=== PATIENT | male | born 1965 | race American Indian/Alaskan Native ===

== ENCOUNTER 2018-02-01 14:13 | Emergency (ER) | payer MEDICAID ==
[2018-02-01 14:13] VITALS: BMI 39.1
--- NOTE | 2018-02-01 14:40 | ED PDOC ---
Arrival/HPI - General Chief Complaint: Lower Extremity Problem/Injury Time Seen by Provider: 02/01/18 14:19 Historian: Patient - History of Present Illness Narrative History of Present Illness (Text): 02/01/18 14:37 52yo male with pmhx of hypertension, Diabetes, hyercholestrolemia who present with complaint of left thigh and knee pain s/p trauma 4days ago. States he fell on uneven side walk and landed on his left knee. States applying topical analgesia without relieve. Denies any other complaint. Past Medical History - Provider Review Nursing Documentation Reviewed: Yes - Infectious Disease Hx of Infectious Diseases: None - Tetanus Immunization Tetanus Immunization: Unknown - Cardiac Hx Cardiac Disorders: Yes Hx Hypertension: Yes - Pulmonary Hx Respiratory Disorders: No - Neurological Hx Neurological Disorder: No - HEENT Hx HEENT Disorder: No - Renal Hx Renal Disorder: No - Endocrine/Metabolic Hx Endocrine Disorders: Yes Hx Diabetes Mellitus Type 2: Yes - Hematological/Oncological Hx Blood Disorders: No - Integumentary Hx Dermatological Disorder: No - Musculoskeletal/Rheumatological Hx Musculoskeletal Disorders: No - Gastrointestinal Hx Gastrointestinal Disorders: No - Genitourinary/Gynecological Hx Genitourinary Disorders: No - Psychiatric Hx Psychophysiologic Disorder: No Hx Depression: No Hx Substance Use: No - Past Surgical History Past Surgical History: No Previous - Surgical History Hx Musculoskeletal Surgery: Yes (left ankle) Hx Tonsillectomy: Yes - Anesthesia Hx Anesthesia: Yes Hx Anesthesia Reactions: No Hx Malignant Hyperthermia: No - Suicidal Assessment Feels Threatened In Home Enviroment: No Family/Social History - Physician Review Nursing Documentation Reviewed: Yes Family/Social History: Unknown Family HX Smoking Status: Former Smoker Hx Alcohol Use: No Hx Substance Use: No Hx Substance Use Treatment: No Allergies/Home Meds Allergies/Adverse Reactions: Allergies No Known Allergies Allergy (Verified 09/28/15 21:06) Home Medications: Home Meds Medication Instructions Recorded Confirmed Metformin HCl [Metformin] 1,000 mg PO BID 04/17/13 09/28/15 Simvastatin [Zocor] 80 mg PO HS 03/30/15 09/28/15 Cetirizine HCl [Children's 5 mg PO DAILY 09/28/15 09/28/15 Cetirizine HCl] Losartan Potassium [Losartan 100 mg PO DAILY 09/28/15 09/28/15 Potassium] Review of Systems - Physician Review All systems were reviewed & negative as marked: Yes - Review of Systems Constitutional: Normal Eyes: Normal ENT: Normal Respiratory: Normal Cardiovascular: Normal Gastrointestinal: Normal Genitourinary Male: Normal Musculoskeletal: Arthralgias (LEft thigh/knee pain) Skin: Normal Neurological: Normal Endocrine: Normal Hemo/Lymphatic: Normal Psychiatric: Normal Physical Exam Vital Signs Reviewed: Yes Vital Signs Temp Pulse Resp BP Pulse Ox 02/01/18 14:22 98.2 F 88 19 169/81 H 97 Temperature: Afebrile Blood Pressure: Normal Pulse: Regular Respiratory Rate: Normal Appearance: Positive for: Well-Appearing, Non-Toxic, Comfortable Pain Distress: None Mental Status: Positive for: Alert and Oriented X 3 - Systems Exam Head: Present: Atraumatic, Normocephalic Pupils: Present: PERRL Extroacular Muscles: Present: EOMI Conjunctiva: Present: Normal Mouth: Present: Moist Mucous Membranes Neck: Present: Normal Range of Motion Respiratory/Chest: Present: Clear to Auscultation, Good Air Exchange. No: Respiratory Distress, Accessory Muscle Use Cardiovascular: Present: Regular Rate and Rhythm, Normal S1, S2. No: Murmurs Abdomen: No: Tenderness, Distention, Peritoneal Signs Back: Present: Normal Inspection Upper Extremity: Present: Normal Inspection. No: Cyanosis, Edema Lower Extremity: Present: NORMAL PULSES, Normal ROM, Tenderness (LEft knee and lateral thigh), Neurovascularly Intact. No: Edema, Swelling Neurological: Present: GCS=15, CN II-XII Intact, Speech Normal Skin: Present: Warm, Dry, Normal Color. No: Rashes Psychiatric: Present: Alert, Oriented x 3, Normal Insight, Normal Concentration Medical Decision Making ED Course and Treatment: 02/01/18 15:51 52yo male present with left knee/thigh pain x4days s/p trauma. Pt was ambulatory in ED. His pain improved in ED with medication. Left knee/femur xray - No acute fracture/dislocation. Result was DW the pt and he was DC home with Naprosyn. referred to his PMD/ortho - RAD Interpretation Radiology Orders: 02/01/18 14:31 KNEE LEFT 2 VIEWS (AP & LAT) [RAD] Stat 02/01/18 14:32 Femur Left [FEMUR MIN 2 VIEWS LT] [RAD] Stat - Medication Orders Current Medication Orders: Discontinued Medications Ketorolac Tromethamine (Toradol) 60 mg IM STAT STA Stop: 02/01/18 14:36 Last Admin: 02/01/18 14:49 Dose: 60 mg MAR Pain Assessment Document 02/01/18 14:49 HI (Rec: 02/01/18 14:50 [id number] Pain Reassessment Is this a pain reassessment? No Sleep Is patient sleeping during reassessment? No Presence of Pain Presence of Pain Yes Location Left, Right or Bilateral Left Pain Location Body Site Leg Description Description Constant Intensity of Pain at present 6 IM Administration Charges Document 02/01/18 14:49 HI (Rec: 02/01/18 14:50 [id number]) Injection Site MAR Injection Site Left Arm Charges for Administration # of IM Administrations 1 Disposition/Present on Arrival - Present on Arrival Any Indicators Present on Arrival: No History of DVT/PE: No History of Uncontrolled Diabetes: No Urinary Catheter: No History of Decub. Ulcer: No History Surgical Site Infection Following: None - Disposition Have Diagnosis and Disposition been Completed?: Yes Diagnosis: Knee pain, Thigh pain Disposition: HOME/ ROUTINE Disposition Time: 16:00 Patient Plan: Discharge Condition: STABLE Discharge Instructions (ExitCare): Knee Pain (DC) Additional Instructions: Follow up with your doctor/orthopedist Return to ED for new or worsening symptoms Prescriptions: Naproxen [Naprosyn] 500 mg PO BID #20 tablet Referrals: Edgar Glaser [Primary Care Provider] - Follow up with primary Vicente aKy MD [Staff Provider] - Follow up with primary Forms: [employer] (Wallisian)
--- NOTE | 2018-02-01 15:52 | RAD ---
Date of service: 02/01/2018 PROCEDURE: Left Femur Radiographs. HISTORY: thigh pain COMPARISON: None. TECHNIQUE: AP and Lateral Radiographs of the left femur. FINDINGS: FEMUR: Normal. No fracture. SOFT TISSUES: Soft tissue swelling. OTHER FINDINGS: None. IMPRESSION: No evidence of acute fracture or destructive bony lesion.
--- NOTE | 2018-02-01 15:54 | RAD ---
Date of service: 02/01/2018 PROCEDURE: Left Knee Radiographs. HISTORY: Pain. COMPARISON: None. FINDINGS: BONES: Normal. No fracture. JOINTS: Mild osteoarthritic changes are noted. JOINT EFFUSION: None. OTHER FINDINGS: None. IMPRESSION: No evidence of acute fracture or dislocation. Mild osteoarthritic changes.
[2018-02-01 17:14] VITALS: BP 154/87; PULSE 72; RESP 18; TEMP 98.3; O2SAT 98
== END 2018-02-01 16:26 | disposition home or self-care (01) ==
LOC: ED 14:13
DX: M79.652 Pain in left thigh (principal); M25.562 Pain in left knee; E11.9 Type 2 diabetes mellitus without complications; I10 Essential (primary) hypertension; E78.00 Pure hypercholesterolemia, unspecified; Z87.891 Personal history of nicotine dependence
CPT/HCPCS: 73552; 73560; 96372; 99284; J1885

== ENCOUNTER 2018-04-13 18:50 | Emergency (ER) | payer MEDICAID ==
[2018-04-13 19:49] VITALS: RESP 18; TEMP 98.5; BMI 29.0
--- NOTE | 2018-04-13 21:34 | ED PDOC ---
Arrival/HPI <Anthony Gorman - Last Filed: 04/13/18 22:37> - History of Present Illness Narrative History of Present Illness (Text): 04/13/18 19:40 Magen Ortez is a 53 year old male who presents to the Emergency department status post fall 1 week ago. Patient states he was going down the steps of his garage about 1 week ago when a step collapsed and he fell backwards hitting his head. Patient states since then he has been experiencing pain to the posterior aspect of his head with associated left-sided neck pain, low back pain, some left elbow discomfort, and left Great toe pain. Patient denies any loss of consciousness, nausea, vomiting, numbness, weakness, other trauma/injury, or any other complaints. Time/Duration: 1 week Symptom Onset: Gradual Symptom Course: Unchanged Activities at Onset: Light Context: Standing, Home <Maddi Cabrera PA-C - Last Filed: 04/14/18 01:05> - General Chief Complaint: Trauma Time Seen by Provider: 04/13/18 19:17 Past Medical History - Provider Review Nursing Documentation Reviewed: Yes - Infectious Disease Hx of Infectious Diseases: None - Tetanus Immunization Tetanus Immunization: Unknown - Cardiac Hx Cardiac Disorders: Yes Hx Hypertension: Yes - Pulmonary Hx Respiratory Disorders: No - Neurological Hx Neurological Disorder: No - HEENT Hx HEENT Disorder: No - Renal Hx Renal Disorder: No - Endocrine/Metabolic Hx Endocrine Disorders: Yes Hx Diabetes Mellitus Type 2: Yes - Hematological/Oncological Hx Blood Disorders: No - Integumentary Hx Dermatological Disorder: No - Musculoskeletal/Rheumatological Hx Musculoskeletal Disorders: No - Gastrointestinal Hx Gastrointestinal Disorders: No - Genitourinary/Gynecological Hx Genitourinary Disorders: No - Psychiatric Hx Psychophysiologic Disorder: No Hx Depression: No Hx Substance Use: No - Past Surgical History Past Surgical History: No Previous - Surgical History Hx Musculoskeletal Surgery: Yes (left ankle) Hx Tonsillectomy: Yes - Anesthesia Hx Anesthesia: Yes Hx Anesthesia Reactions: No Hx Malignant Hyperthermia: No - Suicidal Assessment Feels Threatened In Home Enviroment: No <Maddi Cabrera PA-C - Last Filed: 04/14/18 01:05> Family/Social History - Physician Review Nursing Documentation Reviewed: Yes Family/Social History: Unknown Family HX Smoking Status: Former Smoker Hx Alcohol Use: No Hx Substance Use: No Hx Substance Use Treatment: No <Maddi Cabrera PA-C - Last Filed: 04/14/18 01:05> Allergies/Home Meds <Anthony Gorman - Last Filed: 04/13/18 22:37> <Maddi Cabrera PA-C - Last Filed: 04/14/18 01:05> Allergies/Adverse Reactions: Allergies No Known Allergies Allergy (Verified 09/28/15 21:06) Home Medications: Home Meds Medication Instructions Recorded Confirmed Metformin HCl [Metformin] 1,000 mg PO BID 04/17/13 09/28/15 Simvastatin [Zocor] 80 mg PO HS 03/30/15 09/28/15 Cetirizine HCl [Children's 5 mg PO DAILY 09/28/15 09/28/15 Cetirizine HCl] Losartan Potassium 100 mg PO DAILY 09/28/15 09/28/15 Review of Systems - Physician Review All systems were reviewed & negative as marked: Yes - Review of Systems Cardiovascular: absent: Syncope Gastrointestinal: absent: Nausea, Vomiting Musculoskeletal: Back Pain, Neck Pain Neurological: Headache <Maddi Cabrera PA-C - Last Filed: 04/14/18 01:05> Physical Exam Vital Signs Temp Pulse Resp BP Pulse Ox 04/13/18 18:50 98.5 F 89 18 156/95 H 98 <Anthony Gorman - Last Filed: 04/13/18 22:37> Vital Signs Reviewed: Yes Vital Signs Temp Pulse Resp BP Pulse Ox 04/13/18 18:50 98.5 F 89 18 156/95 H 98 Temperature: Afebrile Blood Pressure: Normal Pulse: Regular Respiratory Rate: Normal Appearance: Positive for: Well-Appearing, Non-Toxic, Comfortable Pain Distress: None Mental Status: Positive for: Alert and Oriented X 3 - Systems Exam Head: Present: Atraumatic, Normocephalic Pupils: Present: PERRL Extroacular Muscles: Present: EOMI Conjunctiva: Present: Normal Mouth: Present: Moist Mucous Membranes Neck: Present: Normal Range of Motion Respiratory/Chest: Present: Clear to Auscultation, Good Air Exchange. No: Respiratory Distress, Accessory Muscle Use Cardiovascular: Present: Regular Rate and Rhythm, Normal S1, S2. No: Murmurs Abdomen: No: Tenderness, Distention, Peritoneal Signs Back: Present: Normal Inspection Upper Extremity: Present: Normal Inspection. No: Cyanosis, Edema Lower Extremity: Present: NORMAL PULSES, Normal ROM, Tenderness (Tenderness to left Great toe), Swelling (Swelling to left Great toe), Neurovascularly Intact, Capillary Refill < 2 s. No: Edema, Cyanosis, Erythema, Deformity, Temperature Abnormalties Neurological: Present: GCS=15, CN II-XII Intact, Speech Normal Skin: Present: Warm, Dry, Normal Color. No: Rashes Psychiatric: Present: Alert, Oriented x 3, Normal Insight, Normal Concentration <Maddi Cabrera PA-C - Last Filed: 04/14/18 01:05> Medical Decision Making - RAD Interpretation Radiology Orders: 04/13/18 19:41 HEAD W/O CONTRAST [CT] Stat CERVICAL SPINE AP & LATERAL [RAD] Stat FOOT LEFT 3 VIEWS ROUTINE [RAD] Stat LS SPINE WITH OBL > 18 YRS OLD [RAD] Stat - Medication Orders Current Medication Orders: Discontinued Medications Acetaminophen (Tylenol 325mg Tab) 975 mg PO STAT STA Stop: 04/13/18 19:46 Last Admin: 04/13/18 19:57 Dose: 975 mg MAR Pain/Vitals Document 04/13/18 19:57 EQ (Rec: 04/13/18 19:58 EQ [id number]) Pain Reassessment Is This A Pain ReAssessment? No Sleep Is patient sleeping during reassessment? No Presence of Pain Presence of Pain Yes <Anthony Gorman - Last Filed: 04/13/18 22:37> ED Course and Treatment: 04/13/18 19:40 Impression: 53 year old male complaining of headache, left-sided neck pain, lower back pain, and pain to left great toe x 1 week. Plan: -- CT Head w/o contrast -- XR Cervical Spine -- XR Lumbar Spine -- XR Left Foot -- Tylenol -- Reassess and disposition Progress Notes: XR C-spine: no fracture, as read by PA XR lumbar spine: no fracture, as read by PA XR left foot: no fracture, no dislocation, as read by PA On reevaluation, patient reports improvement of symptoms, denies any headache or dizziness. Diagnostic results discussed with the patient in great detail. Advised to rest, ice and elevate the L great toe. L great toe was taped and ignacia wrap applied to the L foot. Patient instructed on crutch walking. On exam, patient remains awake alert and oriented 3 in no acute distress. Repeat neuro exam shows no focal findings. Toes taped. Advised to follow up with primary care physician in 1-2 days without fail. Return to the emergency room at any time for any new or worsening symptoms. Patient states he fully agrees with and understands discharge instructions. States that he agrees with the plan and disposition. Verbalized and repeated discharge instructions and plan. I have given the patient opportunity to ask any additional questions. - RAD Interpretation Narrative RAD Interpretations (Text): CT Head: BRAIN No acute intraparenchymal hemorrhage. No mass lesion. No CT evidence for acute territorial infarct. No midline shift or extra-axial collections. VENTRICLES: No hydrocephalus. ORBITS: The orbits are unremarkable. SINUSES AND MASTOIDS: The paranasal sinuses and mastoid air cells are clear. BONES: No fracture. SOFT TISSUES: Unremarkable. IMPRESSION: No acute intracranial abnormality. 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 No Sleep Is patient sleeping during reassessment? No Presence of Pain Presence of Pain Yes <Maddi Cabrera PA-C - Last Filed: 04/14/18 01:05> - PA / METAL FITTER / Resident Statement /DO has reviewed & agrees with the documentation as recorded. <Anthony Gorman - Last Filed: 11/13/18 22:37> - PA / METAL FITTER / Resident Statement MD/DO has reviewed & agrees with the documentation as recorded. - Scribe Statement The provider has reviewed the documentation as recorded by the Gwen Wiseman Provider Scribe Attestation: All medical record entries made by the Scribe were at my direction and personally dictated by me. I have reviewed the chart and agree that the record accurately reflects my personal performance of the history, physical exam, medical decision making, and the department course for this patient. I have also personally directed, reviewed, and agree with the discharge instructions and disposition. <Maddi Cabrera PA-C - Last Filed: 04/14/18 01:05> Disposition/Present on Arrival <Anthony Gorman - Last Filed: 04/13/18 22:37> - Present on Arrival Any Indicators Present on Arrival: No History of DVT/PE: No History of Uncontrolled Diabetes: No Urinary Catheter: No History of Decub. Ulcer: No History Surgical Site Infection Following: None - Disposition Have Diagnosis and Disposition been Completed?: Yes Disposition Time: 22:10 Patient Plan: Discharge <Maddi Cabrera PA-C - Last Filed: 04/14/18 01:05> - Disposition Diagnosis: Head injury, Neck pain, Low back pain, Toe contusion Disposition: HOME/ ROUTINE Condition: STABLE Discharge Instructions (ExitCare): Low Back Pain in Adults, Neck Pain, Closed Head Injury, Toe Injury Additional Instructions: Thank you for letting us take care of you today. You were treated for head injury, neck pain, back pain, toe contusion. The emergency medical care you received today was directed at your acute symptoms. Rest, ice and elevate your foot. It may take several days for your symptoms to resolve. Return to the Emergency Department if your symptoms worsen, do not improve, or if you have any other problems. Please contact your doctor in 2 days for re-evaluation and follow up. Bring any paperwork you were given at discharge with you along with any medications you are taking to your follow up visit. Our treatment cannot replace ongoing medical care by a primary care provider (PCP) outside of the emergency department. Thank you for allowing the [facility] team to be part of your care today. If you had an X-Ray or CT scan: A Radiologist will review the ED reading if any change in treatment is needed we will contact you. Referrals: Edgar Glaser [Primary Care Provider] - Follow up with primary Forms: [employer] ([place]ian)
[2018-04-13 23:16] VITALS: BP 136/72; PULSE 75; O2SAT 97
--- NOTE | 2018-04-14 08:08 | CT ---
Date of service: 04/13/2018 PROCEDURE: CT HEAD WITHOUT CONTRAST. HISTORY: trauma COMPARISON: 06/21/2016 TECHNIQUE: Axial computed tomography images were obtained through the head/brain without intravenous contrast. Radiation dose: Total exam DLP = 956.13 mGy-cm. This CT exam was performed using one or more of the following dose reduction techniques: Automated exposure control, adjustment of the mA and/or kV according to patient size, and/or use of iterative reconstruction technique. FINDINGS: HEMORRHAGE: No intracranial hemorrhage. BRAIN: No mass effect or edema. No atrophy or chronic microvascular ischemic changes. VENTRICLES: Unremarkable. No hydrocephalus. CALVARIUM: Unremarkable. PARANASAL SINUSES: Unremarkable as visualized. No significant inflammatory changes. MASTOID AIR CELLS: Unremarkable as visualized. No inflammatory changes. OTHER FINDINGS: The report concurs with the preliminary [facility] report IMPRESSION: No acute intracranial findings
--- NOTE | 2018-04-14 10:09 | RAD ---
Date of service: 04/13/2018 PROCEDURE: Cervical Spine Radiographs. HISTORY: Pain. COMPARISON: None available. FINDINGS: BONES: Alignment maintained. No fracture. Dens Intact. DISC SPACES: Normal. SOFT TISSUES: Normal. No prevertebral soft tissue swelling. OTHER FINDINGS: None. IMPRESSION: Normal cervical spine radiographs
--- NOTE | 2018-04-14 13:26 | RAD ---
Date of service: 04/13/2018 PROCEDURE: Radiographs of the Lumbar Spine. HISTORY: pain COMPARISON: No prior. FINDINGS: BONES: Normal alignment. No listhesis. No fracture. DISC SPACES: Unremarkable. OTHER FINDINGS: Calcified nonaneurysmal abdominal aorta. IMPRESSION: Unremarkable radiographs of the lumbar spine.
--- NOTE | 2018-04-14 13:26 | RAD ---
Date of service: 04/13/2018 PROCEDURE: Left Foot Radiographs. HISTORY: Pain. No history of recent/ related trauma provided COMPARISON: None. FINDINGS: BONES: No acute fracture. There is a bipartite sesamoid bone likely normal variant. If there is pain in this location, follow-up would be beneficial. JOINTS: Normal. SOFT TISSUES: Normal. OTHER FINDINGS: Incompletely visualized orthopedic hardware distal fibula. IMPRESSION: Bipartite sesamoid bone noted a normal variant. No acute fracture.
== END 2018-04-13 23:15 | disposition home or self-care (01) ==
LOC: ED 18:50
DX: S09.90XA Unspecified injury of head, initial encounter (principal); S90.112A Contusion of left great toe without damage to nail, initial encounter; W10.9XXA Fall (on) (from) unspecified stairs and steps, initial encounter; Y92.008 Other place in unspecified non-institutional (private) residence as the place of occurrence of the external cause; M54.2 Cervicalgia; M54.5 Low back pain; E11.9 Type 2 diabetes mellitus without complications

== ENCOUNTER 2018-10-17 13:48 | Emergency (ER) | payer MEDICAID ==
[2018-10-17 14:07] VITALS: RESP 18; O2SAT 97; BMI 37.1
[2018-10-17] MEDS ORDERED: guaiFENesin 200 mg/10 ml Syrup UD PO STA (14:13)
[2018-10-17] MEDS: Albuterol-Ipratrop 3 mg / 0.5 (3 ml) UD IH SCH ×3 (14:15→14:53)
--- NOTE | 2018-10-17 14:26 | ED PDOC ---
Arrival/HPI - General Chief Complaint: Cough, Cold, Congestion Time Seen by Provider: 10/17/18 13:53 Historian: Patient - History of Present Illness Narrative History of Present Illness (Text): 10/17/18 14:26 53 year old male, whose past medical history includes hypertension and diabetes type 2 presents to the emergency department complaining of productive cough with sputum for the past 4 days. Patient described sputum as clear, sometimes yellowish. States seeing his PMD for symptoms and was prescribed Promethazine, to which he took however had no relief from symptoms. Denies taking any other medications. Patient notes also experiencing sinus congestion, however denies any fever, chills, chest pain, shortness of breath, headache, or any other complaints at this time. Also, patient admits to history of smoking, currently smokes 3 packs weekly. Past Medical History - Provider Review Nursing Documentation Reviewed: Yes - Infectious Disease Hx of Infectious Diseases: None - Tetanus Immunization Tetanus Immunization: Unknown - Cardiac Hx Cardiac Disorders: Yes Hx Hypertension: Yes - Pulmonary Hx Respiratory Disorders: No - Neurological Hx Neurological Disorder: No - HEENT Hx HEENT Disorder: No - Renal Hx Renal Disorder: No - Endocrine/Metabolic Hx Endocrine Disorders: Yes Hx Diabetes Mellitus Type 2: Yes - Hematological/Oncological Hx Blood Disorders: No - Integumentary Hx Dermatological Disorder: No - Musculoskeletal/Rheumatological Hx Musculoskeletal Disorders: No - Gastrointestinal Hx Gastrointestinal Disorders: No - Genitourinary/Gynecological Hx Genitourinary Disorders: No - Psychiatric Hx Psychophysiologic Disorder: No Hx Depression: No Hx Substance Use: No - Past Surgical History Past Surgical History: No Previous - Surgical History Hx Musculoskeletal Surgery: Yes (left ankle) Hx Tonsillectomy: Yes - Anesthesia Hx Anesthesia: Yes Hx Anesthesia Reactions: No Hx Malignant Hyperthermia: No - Suicidal Assessment Feels Threatened In Home Enviroment: No Family/Social History - Physician Review Nursing Documentation Reviewed: Yes Family/Social History: No Known Family HX Smoking Status: Light Smoker < 10 Cigarettes Daily Hx Alcohol Use: No Hx Substance Use: No Hx Substance Use Treatment: No Allergies/Home Meds Allergies/Adverse Reactions: Allergies No Known Allergies Allergy (Verified 09/28/15 21:06) Home Medications: Home Meds Medication Instructions Recorded Confirmed Metformin HCl [Metformin] 1,000 mg PO BID 04/17/13 09/28/15 Simvastatin [Zocor] 80 mg PO HS 03/30/15 09/28/15 Cetirizine HCl [Children's 5 mg PO DAILY 09/28/15 09/28/15 Cetirizine HCl] Losartan Potassium 100 mg PO DAILY 09/28/15 09/28/15 Review of Systems - Physician Review All systems were reviewed & negative as marked: Yes - Review of Systems Constitutional: absent: Fevers, Night Sweats ENT: Sinus Congestion Respiratory: Cough (productive), Sputum (clear, sometimes yellowish as per patient.). absent: SOB Cardiovascular: absent: Chest Pain Neurological: absent: Headache Physical Exam Vital Signs Reviewed: Yes Vital Signs Temp Pulse Resp BP Pulse Ox 10/17/18 14:07 98.6 F 92 H 18 156/96 H 97 Temperature: Afebrile Blood Pressure: Normal Pulse: Regular Respiratory Rate: Normal Appearance: Positive for: Well-Appearing, Non-Toxic, Comfortable Pain Distress: None Mental Status: Positive for: Alert and Oriented X 3 - Systems Exam Head: Present: Atraumatic, Normocephalic Pupils: Present: PERRL Extroacular Muscles: Present: EOMI Conjunctiva: Present: Normal Mouth: Present: Moist Mucous Membranes Neck: Present: Normal Range of Motion Respiratory/Chest: Present: Decreased Breath Sounds (bilaterally). No: Wheezes, Other (no crackles to lungs.) Cardiovascular: Present: Regular Rate and Rhythm, Normal S1, S2. No: Murmurs Abdomen: No: Tenderness, Distention, Peritoneal Signs Back: Present: Normal Inspection Upper Extremity: Present: Normal Inspection. No: Cyanosis, Edema Lower Extremity: Present: Normal Inspection. No: Edema Neurological: Present: GCS=15, CN II-XII Intact, Speech Normal Skin: Present: Warm, Dry, Normal Color. No: Rashes Psychiatric: Present: Alert, Oriented x 3, Normal Insight, Normal Concentration Medical Decision Making ED Course and Treatment: 10/17/18 14:28 Impression: 53 year old male with productive cough with sputum and sinus congestion. Plan: -- Chest X-ray -- Labs -- Robitussin -- Zithromax -- Prednisone -- Duoneb -- Reassess and disposition Progress Notes: 10/17/18 15:19 Patient reassessed and reports some relief. CXR reveals no infiltrates or consolidations. No evidence of leukocytosis seen on CBC. Discussion with patient on importance of smoking cessation as well as continued surveillance of symptoms with the assistance of taking prescribed medication. Scripts provided as well as encouragement to follow up with the PMD. He demonstrates understanding and will follow up. He is stable for discharge. - RAD Interpretation Narrative RAD Interpretations (Text): 10/17/2018 15:45 Chest X-ray IMPRESSION: No active disease. Dictator: Vignesh Ley MD Radiology Orders: 10/17/18 14:13 CHEST PORTABLE [RAD] Stat - Medication Orders Current Medication Orders: Albuterol/Ipratropium (Duoneb 3 Mg/0.5 Mg (3 Ml) Ud) 3 ml IH Q15M ROGER Stop: 10/17/18 15:01 Azithromycin (Zithromax) 500 mg PO STAT STA; Protocol Stop: 10/17/18 14:21 Prednisone (Prednisone Tab) 60 mg PO STAT ONE Stop: 10/17/18 14:21 Discontinued Medications Guaifenesin (Robitussin) 200 mg PO Q4H STA Stop: 10/17/18 14:14 - Scribe Statement The provider has reviewed the documentation as recorded by the Gwen Schneider Provider Scribe Attestation: All medical record entries made by the Scribe were at my direction and persona lly dictated by me. I have reviewed the chart and agree that the record accurately reflects my personal performance of the history, physical exam, medical decision making, and the department course for this patient. I have also personally directed, reviewed, and agree with the discharge instructions and disposition. Disposition/Present on Arrival - Present on Arrival Any Indicators Present on Arrival: No History of DVT/PE: No History of Uncontrolled Diabetes: No Urinary Catheter: No History of Decub. Ulcer: No History Surgical Site Infection Following: None - Disposition Have Diagnosis and Disposition been Completed?: Yes Diagnosis: Bronchitis, Rhinitis Disposition: HOME/ ROUTINE Disposition Time: 15:33 Patient Plan: Discharge Condition: STABLE Discharge Instructions (ExitCare): Acute Bronchitis, Adult (DC) Print Language: LEBANESE Additional Instructions: All medical record entries made by the Scribe were at my direction and personally dictated by me. I have reviewed the chart and agree that the record accurately reflects my personal performance of the history, physical exam, medical decision making, and the department course for this patient. I have also personally directed, reviewed, and agree with the discharge instructions and disposition. Please follow up with your PCP in 1 week Please take medications as prescribed Prescriptions: Albuterol HFA [Ventolin HFA 90 mcg/actuation (8 g)] 200 puff IH Q4H #2 puff Azithromycin [Z-Axel] 250 mg PO DAILY #6 tab Methylprednisolone [Medrol Dose Pack (21 tabs)] 4 mg PO DAILY #21 mg Referrals: Alberta Mujica MD [Medical Doctor] - [place] up [place] [facility] [place] - Follow up with primary Forms: [facility] (Yi), WORK NOTE
[2018-10-17 14:43] LABS: BASO # 0.03 K/mm3 (0.0-2.0); BASO % 0.4 % (0.0-3.0); EOS # 0.3 (0.0-0.7); EOS % 3.1 % (1.5-5.0); HEMOGLOBIN 14.3 g/dL (14.0-18.0); LYMPH # 2.5 (1.2-3.4); LYMPH % 30.6 % (22.0-35.0); MEAN CELL VOLUME 85.8 fl (80.0-105.0); MEAN CORPUSCULAR HEMOGLOBIN 28.9 pg (25.0-35.0); MEAN CORPUSCULAR HGB CONC 33.7 g/dl (31.0-37.0); MEAN PLATELET VOLUME 8.6 fl (7.0-11.0); MONO # 0.4 (0.1-0.6); MONO % 4.3 % (1.0-6.0); RBC 4.94 10^6/uL (3.5-6.1); WHITE BLOOD COUNT 8.1 10^3/uL (4.5-11.0)
--- NOTE | 2018-10-17 14:45 | RAD ---
Date of service: 10/17/2018 HISTORY: cough COMPARISON: No prior. TECHNIQUE: 1 view obtained. FINDINGS: LUNGS: No active pulmonary disease. PLEURA: No significant pleural effusion identified, no pneumothorax apparent. CARDIOVASCULAR: No aortic atherosclerotic calcification present. Normal cardiac size. No pulmonary vascular congestion. OSSEOUS STRUCTURES: No significant abnormalities. VISUALIZED UPPER ABDOMEN: Normal. OTHER FINDINGS: None. IMPRESSION: No active disease.
[2018-10-17 15:41] VITALS: BP 148/89; PULSE 88; TEMP 98.1
== END 2018-10-17 15:46 | disposition home or self-care (01) ==
LOC: ED 13:48
DX: J40 Bronchitis, not specified as acute or chronic (principal); J31.0 Chronic rhinitis; I10 Essential (primary) hypertension; E11.9 Type 2 diabetes mellitus without complications; F17.210 Nicotine dependence, cigarettes, uncomplicated

== ENCOUNTER 2018-10-23 21:04 | Observation (INO) | payer MEDICAID ==
--- NOTE | 2018-10-23 21:08 | ED PDOC ---
Arrival/HPI - History of Present Illness Narrative History of Present Illness (Text): 10/23/18 21:07 Patient is a 53 yo obese AA male with HTN and T2DM who presents with chest pain with cough. Patient states that he has had a productive cough of green sputum for the past 2 weeks. He was seen in the ED 9 days ago and was given Azithromycin and Medrol dose pack. Patient completed these meds and also took Nyquil at home without relief of symptoms. He saw his PMD who reportedly gave him another antibiotic that he has 2 doses left of. He also had a CT chest as an outpatient. He said that he was referred to a reading coach after the CT but has not yet seen them. Patient says that his cough has not subsided and yesterday he developed significant R-sided chest pain with cough and movement. Patient is a smoker and reports his last cigarette as 3 days ago. Patient did not take his medications this morning. He denies history of cardiac disease/heart attack. He denies fevers, chills, SOB, palpitations, diaphoresis. He endorses nasal congestion. Time/Duration: > week Symptom Onset: Gradual Symptom Course: Worsening <Vane Singh - Last Filed: 10/23/18 22:32> - General Historian: Patient - History of Present Illness Activities at Onset: Light Context: Work <Anthony Gorman - Last Filed: 10/23/18 22:44> - General Chief Complaint: Chest Pain Time Seen by Provider: 10/23/18 21:07 Past Medical History - Provider Review Nursing Documentation Reviewed: Yes Primary Care Provider: Twin Fisher - Infectious Disease Hx of Infectious Diseases: None - Tetanus Immunization Tetanus Immunization: Unknown - Cardiac Hx Cardiac Disorders: Yes Hx Hypertension: Yes - Pulmonary Hx Respiratory Disorders: No - Neurological Hx Neurological Disorder: No - HEENT Hx HEENT Disorder: No - Renal Hx Renal Disorder: No - Endocrine/Metabolic Hx Endocrine Disorders: Yes Hx Diabetes Mellitus Type 2: Yes - Hematological/Oncological Hx Blood Disorders: No - Integumentary Hx Dermatological Disorder: No - Musculoskeletal/Rheumatological Hx Musculoskeletal Disorders: No - Gastrointestinal Hx Gastrointestinal Disorders: No - Genitourinary/Gynecological Hx Genitourinary Disorders: No - Psychiatric Hx Psychophysiologic Disorder: No Hx Depression: No Hx Substance Use: No - Past Surgical History Past Surgical History: No Previous - Surgical History Hx Musculoskeletal Surgery: Yes (left ankle) Hx Tonsillectomy: Yes - Anesthesia Hx Anesthesia: Yes Hx Anesthesia Reactions: No Hx Malignant Hyperthermia: No - Suicidal Assessment Feels Threatened In Home Enviroment: No <Vane Singh - Last Filed: 10/23/18 22:32> Family/Social History - Physician Review Nursing Documentation Reviewed: Yes Family/Social History: Unknown Family HX Smoking Status: Light Smoker < 10 Cigarettes Daily Hx Alcohol Use: No Hx Substance Use: No Hx Substance Use Treatment: No <Vane Singh - Last Filed: 10/23/18 22:32> Allergies/Home Meds <Vane Singh - Last Filed: 10/23/18 22:32> <Anthony Gorman - Last Filed: 10/23/18 22:44> Allergies/Adverse Reactions: Allergies No Known Allergies Allergy (Verified 10/23/18 21:11) Home Medications: Home Meds Medication Instructions Recorded Confirmed Metformin HCl [Metformin] 1,000 mg PO BID 04/17/13 09/28/15 Simvastatin [Zocor] 80 mg PO HS 03/30/15 09/28/15 Losartan Potassium 100 mg PO DAILY 09/28/15 09/28/15 Review of Systems - Review of Systems Constitutional: absent: Fatigue, Fevers, Night Sweats Eyes: absent: Vision Changes ENT: absent: Hearing Changes Respiratory: Cough, Sputum (green). absent: SOB, Wheezing Cardiovascular: Chest Pain. absent: Palpitations, Edema Gastrointestinal: absent: Abdominal Pain, Constipation, Diarrhea, Nausea, Vomiting Genitourinary Male: absent: Dysuria, Hematuria Musculoskeletal: Normal Skin: absent: Rash, Pruritis, Skin Lesions Neurological: absent: Headache, Dizziness, Focal Weakness Endocrine: absent: Diaphoresis Hemo/Lymphatic: absent: Adenopathy <Vane Singh - Last Filed: 10/23/18 22:32> - Physician Review All systems were reviewed & negative as marked: Yes <Anthony Gorman - Last Filed: 10/23/18 22:44> Physical Exam Temperature: Afebrile Blood Pressure: Hypertensive Pulse: Tachycardic Respiratory Rate: Normal Appearance: Positive for: Non-Toxic Pain Distress: Mild Mental Status: Positive for: Alert and Oriented X 3 - Systems Exam Head: Present: Atraumatic, Normocephalic Pupils: Present: PERRL Extroacular Muscles: Present: EOMI Conjunctiva: Present: Normal Mouth: Present: Moist Mucous Membranes Neck: Present: Normal Range of Motion. No: JVD, Lymphadenopathy Respiratory/Chest: Present: Clear to Auscultation, Good Air Exchange. No: Respiratory Distress Cardiovascular: Present: Normal S1, S2, Tachycardic. No: Murmurs Abdomen: Present: Hernias (umbilical- easily reducible), Other (obese). No: Tenderness, Distention Back: Present: Normal Inspection Lower Extremity: Present: Normal Inspection. No: Edema Neurological: Present: GCS=15, CN II-XII Intact, Speech Normal Skin: Present: Warm, Dry, Normal Color Psychiatric: Present: Alert, Oriented x 3, Normal Insight, Normal Concentration, Normal Affect, Normal Mood <Vane Singh - Last Filed: 10/23/18 22:32> Vital Signs Reviewed: Yes Vital Signs Temp Pulse Resp BP Pulse Ox 10/23/18 21:33 100 H 187/96 H 10/23/18 21:17 98.3 F 94 H 20 187/96 H 96 10/23/18 21:12 98.3 F 103 H 20 187/96 H 98 <Anthony Gorman - Last Filed: 10/23/18 22:44> Medical Decision Making ED Course and Treatment: 10/23/18 21:31 EKG, CXR Labs Aspirin, Lopressor, Morphine 10/23/18 22:15 BP 153/87 10/23/18 22:[address] Fisher who accepts patient for admission. Requests Dr. Hollis for cardiology consult. 10/23/18 22:32 Re-evaluated patient who is improved but remains with chest pain and cough. He is in agreement with admission. Re-evaluation Time: 22:28 Reassessment Condition: Re-examined, Improving,but remains with symptoms - Lab Interpretations I have reviewed the lab results: Yes Interpretation: No clinic. lab abnormalty - RAD Interpretation Radiology Orders: CXR- poor inspiratory effort, no active disease Integrated Circuits Inspector: ED Physician - EKG Interpretation EKG Interpretation (Text): 10/23/18 21:32 NSR Interpreted by ED Physician: Yes Type: 12 lead EKG Comparison: No previous EKG avail. - Medication Orders Current Medication Orders: 10/23/18 22:17 Discontinued Medications Aspirin (Aspirin) 325 mg PO STAT STA Stop: 10/23/18 21:21 Last Admin: 10/23/18: Dose: 325 mg Metoprolol Tartrate (Lopressor) 25 mg PO STAT STA Stop: 10/23/18 21:23 Last Admin: 10/23/18 21:33 Dose: 25 mg MAR Pulse and Blood Pressure Document 10/23/18 21:33 IT (Rec: 10/23/18 21:[address] [facility] [id number]) Pulse Pulse Rate (60-90 beats/min) 100 Blood Pressure Blood Pressure (100/60-150/90 mm Hg) 187/96 Morphine Sulfate (Morphine) 2 mg IVP STAT STA Stop: 10/23/18 21:21 Last Admin: 10/23/18: Dose: 2 mg MAR Pain Assessment Document 10/23/18 21:33 IT (Rec: 10/23/18 21:[address] [facility] [id number]) Pain Reassessment Is this a pain reassessment? No Sleep Is patient sleeping during reassessment? No Presence of Pain Presence of Pain Yes Pain Scale Used Protocol: PSCALES Pain Scale Used Numeric IVP Administration Document 10/23/18:33 IT (Rec: 10/23/18 21:[address] [facility] [id number]) Charges for Administration # of IVP Administrations 1 <Vane Singh - Last Filed: 10/23/18 22:32> ED Course and Treatment: Patient Seen with Resident: In agreement with resident note which contains more details about the patient. Patient seen and evaluated with resident. Came up with plan and treatment together. 53 year old male presents complaining of chest pain with cough for the past 2 weeks plan: -- EKG -- Labs -- Chest X-ray -- Aspirin, Lopressor, Morphine -- Reassess/dispo - Lab Interpretations Lab Results: PT 12.5 SECONDS (9.4-12.5) 10/23/18 21: INR 1.13 10/23/18 21: APTT 32.3 Seconds (26.9-38.3) 10/23/18 21:25 D-Dimer, Quantitative < 200 ng/mlDDU (0-243) 10/23/18 21: Troponin I < 0.01 ng/mL 10/23/18 21:25 NT-Pro-B Natriuret Pep 57.7 pg/mL (0-450) 10/23/18 21:25 Total Bilirubin 0.4 mg/dL (0.2-1.3) 10/23/18 21:25 AST 21 U/L (17-59) 10/23/18 21:25 ALT 23 U/L (7-56) 10/23/18 21:25 Alkaline Phosphatase 68 U/L (38-126) 10/23/18 21:25 Total Protein 7.1 g/dL (5.8-8.3) 10/23/18 21: Albumin 4.0 g/dL (3.0-4.8) 10/23/18 21: Globulin 3.1 gm/dL 10/23/18 21: Albumin/Globulin Ratio 1.3 (1.1-1.8) 10/23/18 21:25 - RAD Interpretation Narrative RAD Interpretations (Text): CXR- poor inspiratory effort, no active disease, as read by manager medical device Radiology Orders: 10/23/18 21:17 CXR [CHEST PORTABLE] [RAD] Stat - Medication Orders Current Medication Orders: Discontinued Medications Aspirin (Aspirin) 325 mg PO STAT STA Stop: 10/23/18 21:21 Last Admin: 10/23/18 21:33 Dose: 325 mg Metoprolol Tartrate (Lopressor) 25 mg PO STAT STA Stop: 10/23/18 21:23 Last Admin: 10/23/18 21:33 Dose: 25 mg MAR Pulse and Blood Pressure Document 10/23/18 21:33 IT (Rec: 10/23/18 21:[address] [facility] [id number]) Pulse Pulse Rate (60-90 beats/min) 100 Blood Pressure Blood Pressure (100/60-150/90 mm Hg) 187/96 Morphine Sulfate (Morphine) 2 mg IVP STAT STA Stop: 10/23/18 21:21 Last Admin: 10/23/18 21: Dose: 2 mg MAR Pain Assessment Document 10/23/18 21:33 IT (Rec: 10/23/18 21:[address] [facility] [id number]) Pain Reassessment Is this a pain reassessment? No Sleep Is patient sleeping during reassessment? No Presence of Pain Presence of Pain Yes Pain Scale Used Protocol: PSCALES Pain Scale Used Numeric IVP Administration Document 10/23/18 21:33 IT (Rec: 10/23/18 21:[address] [facility] [id number]) Charges for Administration # of IVP Administrations 1 <Anthony Gorman - Last Filed: 10/23/18 22:44> - PA / SENIOR BILLING CONSULTANT / Resident Statement MD/ has reviewed & agrees with the documentation as recorded. MD/DO has examined the patient and agrees with the treatment plan. - Scribe Statement The provider has reviewed the documentation as recorded by the Gwen Escobar Provider Scribe Attestation: All medical record entries made by the Garciaibkaren were at my direction and personally dictated by me. I have reviewed the chart and agree that the record accurately reflects my personal performance of the history, physical exam, medical decision making, and the department course for this patient. I have also personally directed, reviewed, and agree with the discharge instructions and disposition. <Anthony Gorman - Last Filed: 10/23/18 22:44> Disposition/Present on Arrival - Present on Arrival Any Indicators Present on Arrival: No History of DVT/PE: No History of Uncontrolled Diabetes: No Urinary Catheter: No History Surgical Site Infection Following: None - Disposition Have Diagnosis and Disposition been Completed?: Yes Disposition Time: 22:29 Patient Plan: Observation, Telemetry <Vane Singh - Last Filed: 10/23/18 22:32> <Anthony Gorman - Last Filed: 10/23/18 22:44> - Disposition Diagnosis: Chest pain, Cough Disposition: HOSPITALIZED Patient Problems: Current Active Problems Problem Status Onset Chest pain Acute Cough Acute Condition: FAIR
[2018-10-23 21:11] VITALS: BMI 37.8
[2018-10-23] MEDS ORDERED: Morphine 2 mg/ml ISec IVP STA (21:20)
[2018-10-23 21:37] LABS: BASO # 0.03 K/mm3 (0.0-2.0); BASO % 0.2 % (0.0-3.0); EOS # 0.1 (0.0-0.7); EOS % 0.5 % (1.5-5.0); HEMOGLOBIN 13.7 g/dL (14.0-18.0); LYMPH # 2.9 (1.2-3.4); LYMPH % 19.6 % (22.0-35.0); MEAN CORPUSCULAR HEMOGLOBIN 28.7 pg (25.0-35.0); MEAN CORPUSCULAR HGB CONC 33.4 g/dl (31.0-37.0); MEAN PLATELET VOLUME 8.9 fl (7.0-11.0); MONO # 0.6 (0.1-0.6); MONO % 4.1 % (1.0-6.0); RBC 4.77 10^6/uL (3.5-6.1); RED CELL DISTRIBUTION WIDTH 13.1 % (11.5-14.5); WHITE BLOOD COUNT 14.7 10^3/uL (4.5-11.0)
[2018-10-23 21:46] LABS: INR 1.13; PARTIAL THROMBOPLASTIN TIME 32.3 Seconds (26.9-38.3); PROTHROMBIN TIME 12.5 SECONDS (9.4-12.5)
[2018-10-23 22:09] LABS: ALB/GLOB RATIO 1.3 (1.1-1.8); ALT/SGPT 23 U/L (7-56); AST/SGOT 21 U/L (17-59); BLOOD UREA NITROGEN 15 mg/dL (7-21); CALCIUM 9.1 mg/dL (8.4-10.5); GFR NON-AFRICAN AMERICAN > 60
[2018-10-23 22:15] LABS: B-TYPE NATRIURETIC PEPTIDE 57.7 pg/mL (0-450); TROPONIN I < 0.01 ng/mL
[2018-10-24] MEDS ORDERED: Morphine 2 mg/ml ISec IVP STA (00:20)
[2018-10-24] MEDS ORDERED: guaiFENesin-Codeine 100-10mg/5ml Syrup (5 ml) UD PO STA (00:20)
--- NOTE | 2018-10-24 04:22 | CP.PCM.PN ---
Subjective - Date & Time of Evaluation Date of Evaluation: 10/24/18 Time of Evaluation: 04:21 - Subjective Subjective: Patient was seen because I was asked to co-sign order of Robitussin and morphine. Patient had complaint of cough and chest pain because coughing. Had no other complaints. Has no complaints now. Medical record was reviewed. This 53 year old male was admitted with productive green cough and chest pain. Has PMH of DM II, HTN, obesity. Objective - Vital Signs/Intake and Output Vital Signs (last 24 hours): Temp Pulse Resp BP Pulse Ox 98.0 F 79 20 142/88 98 10/23/18 23:44 10/24/18 02:00 10/24/18 00:03 10/23/18 23:44 10/23/18 23:44 - Labs Labs: 10/23/18 21:25 10/23/18 21:25 PT 12.5 SECONDS (9.4-12.5) 10/23/18 21:25 INR 1.13 10/23/18 21:25 APTT 32.3 Seconds (26.9-38.3) 10/23/18 21:25 - Constitutional Appears: Well, No Acute Distress - Head Exam Head Exam: ATRAUMATIC, NORMAL INSPECTION, NORMOCEPHALIC Additional comments: Obese person , not in distress. - Eye Exam Eye Exam: Normal appearance - ENT Exam ENT Exam: Normal External Ear Exam - Neck Exam Neck Exam: Normal Inspection - Respiratory Exam Respiratory Exam: NORMAL BREATHING PATTERN - Cardiovascular Exam Cardiovascular Exam: absent: JVD - GI/Abdominal Exam GI & Abdominal Exam: absent: Distended - Rectal Exam Rectal Exam: Deferred - Exam Additional comments: Deferred. - Extremities Exam Extremities Exam: Normal Inspection - Back Exam Back Exam: NORMAL INSPECTION - Neurological Exam Neurological Exam: Alert, Awake, Oriented x3 - Psychiatric Exam Psychiatric exam: Normal Affect, Normal Mood - Skin Skin Exam: Normal Color Assessment and Plan - Assessment and Plan (Free Text) Assessment: Chest pain. Cough. HTN. DM II. Obesity. Plan: Morphine 2 mg IV x 1 was given. Antitussive as per order. Continue present management.
[2018-10-24] MEDS ORDERED: guaiFENesin DM 200 mg-20 mg/10 ml UD PO PRN (04:53)
[2018-10-24 06:26] VITALS: O2SAT 94
[2018-10-24] MEDS ORDERED: Promethazine/Cod 6.25mg-10mg/5ml Syr UD PO ONE ×2 (06:45→12:00)
[2018-10-24 07:39] LABS: BASO # 0.02 K/mm3 (0.0-2.0); BASO % 0.2 % (0.0-3.0); EOS # 0.1 (0.0-0.7); HEMOGLOBIN 13.9 g/dL (14.0-18.0); LYMPH # 3.2 (1.2-3.4); LYMPH % 25.6 % (22.0-35.0); MEAN CELL VOLUME 86.2 fl (80.0-105.0); MEAN CORPUSCULAR HEMOGLOBIN 28.7 pg (25.0-35.0); MEAN CORPUSCULAR HGB CONC 33.3 g/dl (31.0-37.0); MONO # 0.7 (0.1-0.6); MONO % 5.4 % (1.0-6.0); RBC 4.84 10^6/uL (3.5-6.1); RED CELL DISTRIBUTION WIDTH 13.5 % (11.5-14.5); WHITE BLOOD COUNT 12.5 10^3/uL (4.5-11.0)
[2018-10-24 07:44] LABS: ALB/GLOB RATIO 1.3 (1.1-1.8); ALBUMIN 3.9 g/dL (3.0-4.8); ALT/SGPT 18 U/L (7-56); AST/SGOT 19 U/L (17-59); BLOOD UREA NITROGEN 14 mg/dL (7-21); GFR NON-AFRICAN AMERICAN > 60; HDL CHOLESTEROL 37 mg/dL (29-60)
[2018-10-24 07:52] LABS: TROPONIN I < 0.01 ng/mL
[2018-10-24 07:53] LABS: LDL CHOLESTEROL 136 mg/dL (0-129)
--- NOTE | 2018-10-24 08:02 | CP.PCM.HP ---
<Cortez Phillips - Last Filed: 10/24/18 09:15> History of Present Illness - History of Present Illness History of Present Illness: Cortez Phillips D.O. PGY-3, Internal Medicine Resident, Dr. Fisher's Service, H&P CC: right sided chest discomfort for 2 weeks 53-year-old male with past medical history of type 2 diabetes, hypertension, hyperlipidemia, and morbid obesity who presents for complaints of chest discomfort for about 2 weeks. Patient states that he had a cough for approximately 2 weeks. Patient originally presented here on 10/17 and was given a course of azithromycin and Medrol Dosepak with only transient improvement in his symptoms. Patient states that he then also went to see his primary medical doctor and was given another course of antibiotics to be improved when she cannot recall. Patient states that he presented because the pain was getting so bad that he could not even function. Patient states that he had a prescription of promethazine with codeine cough syrup and this is the only thing that helped. Never had any issues like this before. Denies any recent periods of immobility or any recent long travel. Denies sick contacts that he knows of. Patient had an outpatient CT the results of which he does not have her know about. Patient states the pain stays in the right side and does not radiate anywhere. Describes a tentative tenderness worse. Describes as stabbing. Not associated with any fevers, nausea, vomiting, diarrhea, constipation, fevers, chills or other complaints. PMH: As described above PSH: left ankle surgery SH: Smokes about a pack per day for multiple years now, social EtOH, social marijuana but no other illicit drug use FH: High blood pressure and diabetes and other family members Meds: Reviewed with patient Allergies: No known allergies Present on Admission - Present on Admission Any Indicators Present on Admission: No Review of Systems - Review of Systems All systems: reviewed and no additional remarkable complaints except (as per HPI) Past Patient History - Infectious Disease Hx of Infectious Diseases: None - Tetanus Immunizations Tetanus Immunization: Unknown - Past Social History Smoking Status: Light Smoker < 10 Cigarettes Daily - CARDIAC Hx Angina: Yes Hx Hypercholesterolemia: Yes Hx Hypertension: Yes - PULMONARY Hx Bronchitis: Yes - NEUROLOGICAL Hx Neurological Disorder: No - HEENT Hx HEENT Problems: Yes - RENAL Hx Chronic Kidney Disease: No - ENDOCRINE/METABOLIC Hx Endocrine Disorders: Yes Hx Diabetes Mellitus Type 2: Yes - HEMATOLOGICAL/ONCOLOGICAL Hx Blood Disorders: No - INTEGUMENTARY Hx Dermatological Problems: No - MUSCULOSKELETAL/RHEUMATOLOGICAL Hx Musculoskeletal Disorders: Yes (L ankle fx) Hx Back Pain: Yes Hx Degenerative Joint Disease: Yes Hx Falls: No Hx Unsteady Gait: Yes - GASTROINTESTINAL Hx Gastrointestinal Disorders: No - GENITOURINARY/GYNECOLOGICAL Hx Genitourinary Disorders: No - PSYCHIATRIC Hx Psychophysiologic Disorder: No Hx Depression: No Hx Substance Use: No - SURGICAL HISTORY Hx Musculoskeletal Surgery: Yes (left ankle) Hx Tonsillectomy: Yes - ANESTHESIA Hx Anesthesia: Yes Hx Anesthesia Reactions: No Hx Malignant Hyperthermia: No Meds Allergies/Adverse Reactions: Allergies Allergy/AdvReac Type Severity Reaction Status Date / Time No Known Allergies Allergy Verified 10/23/18 21:11 Physical Exam - Constitutional Appears: Well, Non-toxic, No Acute Distress - Head Exam Head Exam: ATRAUMATIC, NORMOCEPHALIC - Eye Exam Eye Exam: EOMI, PERRL. absent: Scleral icterus - ENT Exam ENT Exam: Mucous Membranes Moist, Normal Oropharynx - Neck Exam Neck exam: Positive for: Normal Inspection. Negative for: Lymphadenopathy - Respiratory Exam Respiratory Exam: Clear to Auscultation Bilateral. absent: Rales, Rhonchi, Wheezes - Cardiovascular Exam Cardiovascular Exam: RRR, +S1, +S2. absent: Gallop, Rubs, Systolic Murmur Additional comments: discrete and exquisite point tenderness over costochondral joints 2 and 3 on right side - GI/Abdominal Exam GI & Abdominal Exam: Normal Bowel Sounds, Soft. absent: Distended, Tenderness - Extremities Exam Extremities exam: Positive for: normal capillary refill. Negative for: calf tenderness, pedal edema - Back Exam Back exam: absent: vertebral tenderness - Neurological Exam Neurological exam: Alert, CN II-XII Intact, Oriented x3 - Psychiatric Exam Psychiatric exam: Normal Affect, Normal Mood - Skin Skin Exam: Dry, Warm Results - Vital Signs Recent Vital Signs: Last Vital Signs Temp 98.2 F 10/24/18 06:00 Pulse 87 10/24/18 06:00 Resp 20 10/24/18 06:00 BP 164/92 H 10/24/18 06:00 Pulse Ox 94 L 10/24/18 06:00 - Labs Result Diagrams: 10/24/18 07:00 10/24/18 07:00 Labs: Laboratory Results - last 24 hr 10/23/18 10/23/18 10/23/18 21:25 21:25 21:25 WBC 14.7 H D RBC 4.77 Hgb 13.7 L Hct 41.0 L MCV 86.0 MCH 28.7 MCHC 33.4 RDW 13.1 Plt Count 299 MPV 8.9 Neut % (Auto) 75.6 H Lymph % (Auto) 19.6 L Mcduffie % (Auto) 4.1 Eos % (Auto) 0.5 L Baso % (Auto) 0.2 Lymph # (Auto) 2.9 [place]duffie # (Auto) 0.6 Eos # (Auto) 0.1 Baso # (Auto) 0.03 Absolute Neuts (auto) 11.14 H PT 12.5 INR 1.13 APTT 32.3 D-Dimer, Quantitative Sodium 134 Potassium 4.3 Chloride 103 Carbon Dioxide 23 Anion Gap 13 BUN 15 Creatinine 0.8 Est GFR ( Amer) > 60 Est GFR (Non-Af Amer) > 60 POC Glucose (mg/dL) Random Glucose 198 H Calcium 9.1 Phosphorus 3.3 Magnesium 2.0 Total Bilirubin 0.4 AST 21 ALT 23 Alkaline Phosphatase 68 Total Creatine Kinase 95 Troponin I < 0.01 NT-Pro-B Natriuret Pep 57.7 Total Protein 7.1 Albumin 4.0 Globulin 3.1 Albumin/Globulin Ratio 1.3 Triglycerides Cholesterol LDL Cholesterol Direct HDL Cholesterol 10/23/18 10/24/18 10/24/18 21:25 07:00 07:04 WBC RBC Hgb Hct MCV MCH MCHC RDW Plt Count MPV Neut % (Auto) Lymph % (Auto) [place]duffie % (Auto) Eos % (Auto) Baso % (Auto) Lymph # (Auto) [place]duffie # (Auto) Eos # (Auto) Baso # (Auto) Absolute Neuts (auto) PT INR APTT D-Dimer, Quantitative < 200 Sodium 135 Potassium 4.4 Chloride 102 Carbon Dioxide 26 Anion Gap 11 BUN 14 Creatinine 0.9 Est GFR ( Amer) > 60 Est GFR (Non-Af Amer) > 60 POC Glucose (mg/dL) 178 H Random Glucose 184 H Calcium 9.0 Phosphorus 3.7 Magnesium 2.1 Total Bilirubin 0.5 AST 19 ALT 18 Alkaline Phosphatase 75 Total Creatine Kinase Troponin I < 0.01 NT-Pro-B Natriuret Pep Total Protein 6.8 Albumin 3.9 Globulin 3.0 Albumin/Globulin Ratio 1.3 Triglycerides 301 H Cholesterol 220 H LDL Cholesterol Direct 136 H HDL Cholesterol 37 Assessment & Plan - Assessment and Plan (Free Text) Assessment: 53-year-old male with past medical history of type 2 diabetes, hypertension, hyperlipidemia, and morbid obesity who presents for complaints of chest discomfort for about 2 weeks. Plan: 1. Right-sided chest pain likely costochondritis 2. Hypertension 3. Type 2 diabetes 4. Hyperlipidemia 5. Morbid obesity 6. Tobacco abuse Patient placed in observation. Cardiology to evaluate the patient. Patient does have exquisitely reproducible tenderness over the right second and third costochondral joints. This is likely costochondritis secondary to recurrent coughing spells. Discussed at length with patient. We will give the patient ibuprofen 600 mg tablet and reevaluate his pain. We will also give the patient promethazine and codeine cough syrup to suppress his cough. First troponin is negative. Will repeat troponin. EKG does not reveal any abnormalities. We will follow-up with cardiology. We will obtain a lipid panel A1c. He will continue his losartan for his high blood pressure. For his diabetes we will co ntinue his metformin. Patient does not wish to discuss lifestyle modifications at this time for his morbid obesity. Patient is currently thinking about quitting when discussing smoking cessation but at this time would like to defer. will follow clinical course. Patient was seen and examined and case was discussed with attending physician at length. - Date & Time Date: 10/24/18 Time: 05:50 <Twin Fisher S - Last Filed: 10/24/18 14:19> Results - Vital Signs Recent Vital Signs: Last Vital Signs Temp 97.9 F 10/24/18 11:30 Pulse 80 10/24/18 11:30 Resp 18 10/24/18 11:30 BP 168/88 H 10/24/18 11:30 Pulse Ox 94 L 10/24/18 06:00 - Labs Result Diagrams: 10/24/18 07:00 10/24/18 07:00 Labs: Laboratory Results - last 24 hr 10/23/18 10/23/18 10/23/18 21:25 21:25 21:25 WBC 14.7 H D RBC 4.77 Hgb 13.7 L Hct 41.0 L MCV 86.0 MCH 28.7 MCHC 33.4 RDW 13.1 Plt Count 299 MPV 8.9 Neut % (Auto) 75.6 H Lymph % (Auto) 19.6 L Mcduffie % (Auto) 4.1 Eos % (Auto) 0.5 L Baso % (Auto) 0.2 Lymph # (Auto) 2.9 [place]duffie # (Auto) 0.6 Eos # (Auto) 0.1 Baso # (Auto) 0.03 Absolute Neuts (auto) 11.14 H PT 12.5 INR 1.13 APTT 32.3 D-Dimer, Quantitative Sodium 134 Potassium 4.3 Chloride 103 Carbon Dioxide 23 Anion Gap 13 BUN 15 Creatinine 0.8 Est GFR ( Amer) > 60 Est GFR (Non-Af Amer) > 60 POC Glucose (mg/dL) Random Glucose 198 H Hemoglobin A1c Calcium 9.1 Phosphorus 3.3 Magnesium 2.0 Total Bilirubin 0.4 AST 21 ALT 23 Alkaline Phosphatase 68 Total Creatine Kinase 95 Troponin I < 0.01 NT-Pro-B Natriuret Pep 57.7 Total Protein 7.1 Albumin 4.0 Globulin 3.1 Albumin/Globulin Ratio 1.3 Triglycerides Cholesterol LDL Cholesterol Direct HDL Cholesterol TSH 3rd Generation 10/23/18 10/24/18 10/24/18 21:25 07:00 07:00 WBC RBC Hgb Hct MCV MCH MCHC RDW Plt Count MPV Neut % (Auto) Lymph % (Auto) Mcduffie % (Auto) Eos % (Auto) Baso % (Auto) Lymph # (Auto) [place]duffie # (Auto) Eos # (Auto) Baso # (Auto) Absolute Neuts (auto) PT INR APTT D-Dimer, Quantitative < 200 Sodium 135 Potassium 4.4 Chloride 102 Carbon Dioxide 26 Anion Gap 11 BUN 14 Creatinine 0.9 Est GFR ( Amer) > 60 Est GFR (Non-Af Amer) > 60 POC Glucose (mg/dL) Random Glucose 184 H Hemoglobin A1c 8.2 H Calcium 9.0 Phosphorus 3.7 Magnesium 2.1 Total Bilirubin 0.5 AST 19 ALT 18 Alkaline Phosphatase 75 Total Creatine Kinase Troponin I < 0.01 NT-Pro-B Natriuret Pep Total Protein 6.8 Albumin 3.9 Globulin 3.0 Albumin/Globulin Ratio 1.3 Triglycerides 301 H Cholesterol 220 H LDL Cholesterol Direct 136 H HDL Cholesterol 37 TSH 3rd Generation 10/24/18 10/24/18 10/24/18 07:00 07:00 07:04 WBC 12.5 H RBC 4.84 Hgb 13.9 L Hct 41.7 L MCV 86.2 MCH 28.7 MCHC 33.3 RDW 13.5 Plt Count 289 MPV 9.0 Neut % (Auto) 67.8 Lymph % (Auto) 25.6 Mcduffie % (Auto) 5.4 Eos % (Auto) 1.0 L Baso % (Auto) 0.2 Lymph # (Auto) 3.2 Mcduffie # (Auto) 0.7 H Eos # (Auto) 0.1 Baso # (Auto) 0.02 Absolute Neuts (auto) 8.49 H PT INR APTT D-Dimer, Quantitative Sodium Potassium Chloride Carbon Dioxide Anion Gap BUN Creatinine Est GFR ( Amer) Est GFR (Non-Af Amer) POC Glucose (mg/dL) 178 H Random Glucose Hemoglobin A1c Calcium Phosphorus Magnesium Total Bilirubin AST ALT Alkaline Phosphatase Total Creatine Kinase Troponin I NT-Pro-B Natriuret Pep Total Protein Albumin Globulin Albumin/Globulin Ratio Triglycerides Cholesterol LDL Cholesterol Direct HDL Cholesterol TSH 3rd Generation 2.48 10/24/18 10:52 WBC RBC Hgb Hct MCV MCH MCHC RDW Plt Count MPV Neut % (Auto) Lymph % (Auto) [place]duffie % (Auto) Eos % (Auto) Baso % (Auto) Lymph # (Auto) Mcduffie # (Auto) Eos # (Auto) Baso # (Auto) Absolute Neuts (auto) PT INR APTT D-Dimer, Quantitative Sodium Potassium Chloride Carbon Dioxide Anion Gap BUN Creatinine Est GFR ( Amer) Est GFR (Non-Af Amer) POC Glucose (mg/dL) 271 H Random Glucose Hemoglobin A1c Calcium Phosphorus Magnesium Total Bilirubin AST ALT Alkaline Phosphatase Total Creatine Kinase Troponin I NT-Pro-B Natriuret Pep Total Protein Albumin Globulin Albumin/Globulin Ratio Triglycerides Cholesterol LDL Cholesterol Direct HDL Cholesterol TSH 3rd Generation Assessment & Plan - Assessment and Plan (Free Text) Plan: Pt seen and examined by me. I have reviewed the note of the director global medical affairs and I agree with it. I have discussed the assessment and plan with the resident. I have reviewed the medications and the last labs.
[2018-10-24] MEDS ORDERED: Morphine 2 mg/ml ISec IVP ONE (08:50)
--- NOTE | 2018-10-24 10:15 | CP.PCM.CON ---
History of Present Illness - History of Present Illness History of Present Illness: Awake, alert, no distress Reason for consultation:Cardiac evaluation of chest pain Brief history of present illness: A 53 year old male who came in to the ER due to coughing and chest pain. Patient has been coughing for the past 2 weeks and had seen PMD and was prescribed with Azithromycin and Medrol dose pack. He completed antibiotics and medrol pack however symptoms were not resolved and he went back to PMD and another regimen of antibiotics prescribed. He is having green productive cough. He complaints of hard coughing that his chest hurts. Chest pain with cough. Site tender to touch and reproducible. History of hypertension, diabetes, obese, current smoker almost 1 pack per day. Consult was called to evaluate chest pain. Seen and examined by me and Dr. Hollis Review of Systems - Review of Systems All systems: reviewed and no additional remarkable complaints except Review of Systems: as per HPI Past Patient History - Infectious Disease Hx of Infectious Diseases: None - Tetanus Immunizations Tetanus Immunization: Unknown - Past Social History Smoking Status: Light Smoker < 10 Cigarettes Daily - CARDIAC Hx Angina: Yes Hx Hypercholesterolemia: Yes Hx Hypertension: Yes - PULMONARY Hx Bronchitis: Yes - NEUROLOGICAL Hx Neurological Disorder: No - HEENT Hx HEENT Problems: Yes - RENAL Hx Chronic Kidney Disease: No - ENDOCRINE/METABOLIC Hx Endocrine Disorders: Yes Hx Diabetes Mellitus Type 2: Yes - HEMATOLOGICAL/ONCOLOGICAL Hx Blood Disorders: No - INTEGUMENTARY Hx Dermatological Problems: No - MUSCULOSKELETAL/RHEUMATOLOGICAL Hx Musculoskeletal Disorders: Yes (L ankle fx) Hx Back Pain: Yes Hx Degenerative Joint Disease: Yes Hx Falls: No Hx Unsteady Gait: Yes - GASTROINTESTINAL Hx Gastrointestinal Disorders: No - GENITOURINARY/GYNECOLOGICAL Hx Genitourinary Disorders: No - PSYCHIATRIC Hx Psychophysiologic Disorder: No Hx Depression: No Hx Substance Use: No - SURGICAL HISTORY Hx Musculoskeletal Surgery: Yes (left ankle) Hx Tonsillectomy: Yes - ANESTHESIA Hx Anesthesia: Yes Hx Anesthesia Reactions: No Hx Malignant Hyperthermia: No Meds Home Medications: Home Medication List Medication Instructions Recorded Confirmed Type Promethazine/Codeine 5 ml PO Q6H PRN #240 ml 10/24/18 Rx [Phenergan/Codeine Oral Syrup] Allergies/Adverse Reactions: Allergies Allergy/AdvReac Type Severity Reaction Status Date / Time No Known Allergies Allergy Verified 10/23/18 21:11 - Medications Medications: Current Medications Guaifenesin/Dextromethorphan (Robitussin Dm) 10 ml PO Q4H PRN PRN Reason: Cough Losartan Potassium (Cozaar) 100 mg PO DAILY [facility] Last Admin: 10/24/18 09:04 Dose: 100 mg Metformin HCl (Glucophage) 1,000 mg PO BID [facility] Last Admin: 10/24/18 09:04 Dose: 1,000 mg Promethazine HCl/Codeine (Phenergan/Codeine Oral Syrup) 10 ml PO ONCE ONE Stop: 10/24/18 12:01 Physical Exam - Constitutional Appears: Non-toxic, No Acute Distress - Head Exam Head Exam: NORMAL INSPECTION, NORMOCEPHALIC - Eye Exam Eye Exam: Normal appearance Pupil Exam: NORMAL ACCOMODATION - ENT Exam ENT Exam: Mucous Membranes Moist, Normal Exam - Respiratory Exam Respiratory Exam: Decreased Breath Sounds, Clear to Auscultation Bilateral, NORMAL BREATHING PATTERN - Cardiovascular Exam Cardiovascular Exam: REGULAR RHYTHM, +S1, +S2 Additional comments: right chest tender to touch hurts when coughing - GI/Abdominal Exam GI & Abdominal Exam: Normal Bowel Sounds, Soft - Neurological Exam Neurological exam: Alert, Oriented x3 - Psychiatric Exam Psychiatric exam: Normal Affect, Normal Mood - Skin Skin Exam: Dry, Intact, Normal Color Results - Vital Signs Recent Vital Signs: Last Vital Signs Temp 98.2 F 10/24/18 06:00 Pulse 84 10/24/18 10:00 Resp 20 10/24/18 06:00 BP 164/92 H 10/24/18 06:00 Pulse Ox 94 L 10/24/18 06:00 - Labs Result Diagrams: 10/24/18 07:00 10/24/18 07:00 Labs: Laboratory Results - last 24 hr 10/23/18 10/23/18 10/23/18 21:25 21:25 21:25 WBC 14.7 H D RBC 4.77 Hgb 13.7 L Hct 41.0 L MCV 86.0 MCH 28.7 MCHC 33.4 RDW 13.1 Plt Count 299 MPV 8.9 Neut % (Auto) 75.6 H Lymph % (Auto) 19.6 L Cowley % (Auto) 4.1 Eos % (Auto) 0.5 L Baso % (Auto) 0.2 Lymph # (Auto) 2.9 [place] # (Auto) 0.6 Eos # (Auto) 0.1 Baso # (Auto) 0.03 Absolute Neuts (auto) 11.14 H PT 12.5 INR 1.13 APTT 32.3 D-Dimer, Quantitative Sodium 134 Potassium 4.3 Chloride 103 Carbon Dioxide 23 Anion Gap 13 BUN 15 Creatinine 0.8 Est GFR ( Amer) > 60 Est GFR (Non-Af Amer) > 60 POC Glucose (mg/dL) Random Glucose 198 H Calcium 9.1 Phosphorus 3.3 Magnesium 2.0 Total Bilirubin 0.4 AST 21 ALT 23 Alkaline Phosphatase 68 Total Creatine Kinase 95 Troponin I < 0.01 NT-Pro-B Natriuret Pep 57.7 Total Protein 7.1 Albumin 4.0 Globulin 3.1 Albumin/Globulin Ratio 1.3 Triglycerides Cholesterol LDL Cholesterol Direct HDL Cholesterol TSH 3rd Generation 10/23/18 10/24/18 10/24/18 21:25 07:00 07:00 WBC RBC Hgb Hct MCV MCH MCHC RDW Plt Count MPV Neut % (Auto) Lymph % (Auto) [place] % (Auto) Eos % (Auto) Baso % (Auto) Lymph # (Auto) [place] # (Auto) Eos # (Auto) Baso # (Auto) Absolute Neuts (auto) PT INR APTT D-Dimer, Quantitative < 200 Sodium 135 Potassium 4.4 Chloride 102 Carbon Dioxide 26 Anion Gap 11 BUN 14 Creatinine 0.9 Est GFR ( Amer) > 60 Est GFR (Non-Af Amer) > 60 POC Glucose (mg/dL) Random Glucose 184 H Calcium 9.0 Phosphorus 3.7 Magnesium 2.1 Total Bilirubin 0.5 AST 19 ALT 18 Alkaline Phosphatase 75 Total Creatine Kinase Troponin I < 0.01 NT-Pro-B Natriuret Pep Total Protein 6.8 Albumin 3.9 Globulin 3.0 Albumin/Globulin Ratio 1.3 Triglycerides 301 H Cholesterol 220 H LDL Cholesterol Direct 136 H HDL Cholesterol 37 TSH 3rd Generation 2.48 10/24/18 10/24/18 07:00 07:04 WBC 12.5 H RBC 4.84 Hgb 13.9 L Hct 41.7 L MCV 86.2 MCH 28.7 MCHC 33.3 RDW 13.5 Plt Count 289 MPV 9.0 Neut % (Auto) 67.8 Lymph % (Auto) 25.6 Cow[place] % (Auto) 5.4 Eos % (Auto) 1.0 L Baso % (Auto) 0.2 Lymph # (Auto) 3.2 [place]ley # (Auto) 0.7 H Eos # (Auto) 0.1 Baso # (Auto) 0.02 Absolute Neuts (auto) 8.49 H PT INR APTT D-Dimer, Quantitative Sodium Potassium Chloride Carbon Dioxide Anion Gap BUN Creatinine Est GFR ( Amer) Est GFR (Non-Af Amer) POC Glucose (mg/dL) 178 H Random Glucose Calcium Phosphorus Magnesium Total Bilirubin AST ALT Alkaline Phosphatase Total Creatine Kinase Troponin I NT-Pro-B Natriuret Pep Total Protein Albumin Globulin Albumin/Globulin Ratio Triglycerides Cholesterol LDL Cholesterol Direct HDL Cholesterol TSH 3rd Generation Assessment & Plan - Assessment and Plan (Free Text) Assessment: A 53 year old male who came in to the ER due to coughing and chest pain. Patient has been coughing for the past 2 weeks and had seen PMD and was prescribed with Azithromycin and Medrol dose pack. He completed antibiotics and medrol pack however symptoms were not resolved and he went back to PMD and another regimen of antibiotics prescribed. He is having green productive cough. He complaints of hard coughing that his chest hurts. Chest pain with cough. Site tender to touch and reproducible.Unable to sleep from coughing. History of hypertension, diabetes, obese, current smoker almost 1 pack per day. Consult was called to carlos reyes chest pain.Troponin normal x 2. EKG showed normal sinus rhythm, no ischemia. Chest X ray pending results. No cardiac work up done at [facility]. Chest pain due to coughing, musculoskeletal in nature, pain is reproducible. No evidence of acute myocardial infarction. Rule out acute coronary syndrome. M otrin ordered for musculoskeletal pain. Will order echo and stress test as out patient. Cardiac status stable. PRN Promethazine wih Codeine for coughing. May discharge from cardiac standpoint. Plan: No distress Coughing, PRN promethazine with codeine Heart rate stable Blood pressure stable Cardiac status stable On Cozaar 100 mg daily Continue current medications Continue current treatment Out patient stress test and echocardiogram Smoking cessation Nicoderm patch Weight reduction May discharge from cardiac standpoint Follow up in office 2-3 weeks Plan and treatment discussed with Dr. Hollis Thank you Dr. Fisher for the opportunity of taking care of Magen Ortez - Date & Time Date: 10/24/18 Time: 06:30
--- NOTE | 2018-10-24 10:45 | CARD ---
APPROVED REPORT Date of service: 10/23/2018 EKG Measurement Heart [id number] <Conclusion> Normal sinus rhythm Normal ECG
--- NOTE | 2018-10-24 11:07 | RAD ---
Date of service: 10/23/2018 HISTORY: cough COMPARISON: Chest radiograph dated 10/17/2018. TECHNIQUE: 1 view obtained. FINDINGS: LUNGS: Left basilar atelectasis. No active pulmonary disease. PLEURA: No significant pleural effusion identified, no pneumothorax apparent. CARDIOVASCULAR: Aortic atherosclerotic calcifications. Cardiomediastinal silhouette stably prominent. OSSEOUS STRUCTURES: Unchanged. VISUALIZED UPPER ABDOMEN: Normal. OTHER FINDINGS: None. IMPRESSION: No active disease.
[2018-10-24 11:30] VITALS: BP 168/88; PULSE 80; RESP 18; TEMP 97.9
--- NOTE | 2018-10-25 00:06 | HP ---
DATE OF EXAM: 10/24/2018 HISTORY OF PRESENT ILLNESS: The patient was seen and examined. I do agree with the note of the medical technologist hematology. I was involved in the plan of care. The patient had come into the hospital because of chest pain. The patient was having pain that was tenderness to the touch, mostly in the right side of the center of the chest. He says it is worse with his coughing. He says he was on azithromycin and Medrol Dosepak. He also was on cough medications, but ran out of the cough medications, because he spilled the promethazine and codeine that he was on. He said that the codeine did help with the cough. He has no complaints. He says he has no headaches or dizziness. No nausea. No vomiting. He had troponins done which were negative. He was seen by Dr. Hollis from cardiology. He is going to be discharged and we will followup with his office for an outpatient stress and echo. The patient was advised about smoking cessation. He was given a prescription for promethazine and codeine. He is also advised to take ibuprofen 2-3 times for his pain. He was going to followup with his primary care doctor, Dr. Fisher in [place]. The patient has risk factors for heart disease given that he is obese with the BMI of 37 and he has diabetes type II, dyslipidemia, and he is a smoker as well as having hypertension. The patient is discharged home to followup as an outpatient. CONDITION: Stable. ACTIVITIES: Increase as tolerated. He was getting morphine for his pain. He is on aspirin. ER he was given metformin for his diabetes type II. He is on losartan for his hypertension. He is on nicotine patch for his smoking. Twin Fisher MD
== END 2018-10-24 15:28 | disposition home or self-care (01) ==
LOC: ED 21:04 → ERH 22:26 → 2RSO 23:45
PROVIDERS: ADMIT Internal Medicine Nephrology; ATTEND Internal Medicine Nephrology
DX: M94.0 Chondrocostal junction syndrome [Tietze] (principal); R05 Cough; I10 Essential (primary) hypertension; E11.9 Type 2 diabetes mellitus without complications; E78.5 Hyperlipidemia, unspecified; F17.210 Nicotine dependence, cigarettes, uncomplicated; E78.00 Pure hypercholesterolemia, unspecified; E66.01 Morbid (severe) obesity due to excess calories; Z68.37 Body mass index [BMI] 37.0-37.9, adult; Z79.84 Long term (current) use of oral hypoglycemic drugs
CPT/HCPCS: 36415; 71045; 80053; 80061; 82554; 82948; 83036; 83735; 83880; 84100; 84443; 84484; 85025; 85378; 85610; 85730; 93005; 96374; 99285; G0378; J2270